=== PATIENT | female | born 2000 | race Caucasian/White ===

== ENCOUNTER 2023-07-08 13:58 | Emergency (ER) | payer MEDICAID ==
[~2023-07-08] VITALS: Ht 160 cm; Wt 74.8 kg
[2023-07-08 14:26] VITALS: BP 114/85; TEMP 98.8; O2SAT 98
[2023-07-08] MEDS ORDERED: IBUP-1953 PO (14:55)
[2023-07-08] MEDS ORDERED: AMOX-430 PO (14:55)
== END 2023-07-08 15:06 | disposition home or self-care (01) ==
LOC: ER 14:04
DX: J03.90 Acute tonsillitis, unspecified (principal); Z90.49 Acquired absence of other specified parts of digestive tract
CPT/HCPCS: 86403-TC; 87070-TC